=== PATIENT | female | born 1985 | race Caucasian/White ===

== ENCOUNTER 2017-04-02 15:43 | Emergency (ER) | payer BC, MEDICAID ==
[~2017-04-02] VITALS: Ht 162.6 cm; Wt 67.6 kg
[~2017-04-02 15:43] MED LIST: CEPH500C3 PO; KETO10 PO; LEVA500T33 PO; Z.0.NO CURRENT MEDS
[2017-04-02] MEDS ORDERED: PRENTAB7 (16:02)
--- NOTE | 2017-04-02 16:43 | PD ---
HPI Chief Complaint Lower abdominal pain Melo Cohen contractions Date Seen: Apr 02, 2017 Time Seen: 16:35 Travel History International Travel<30 Days: No Contact w/Intl Traveler<30Days: No Known Affected Area: No History of Present Illness HPI This patient is a 31-year-old white female now at 31-32 weeks presents complaining of lower abdominal pains and the contractions, no bleeding or leakage of fluid. heart rate tracing is reactive, she has no contractions seen on the monitor Weeks Gestation: 31 Para: 2 : 3 History Obstetric History Obstetric History 2 vaginal deliveries Social History Alcohol Use: No Tobacco Use: No Substance Abuse: No Allergies-Medications (Allergen,Severity, Reaction): Coded Allergies: No Known Allergies (Unverified Allergy, Unknown, 04/02/17) pineapple (Verified Adverse Reaction, Unknown, Anaphylaxis, 04/02/17) Home Meds Reported Medications Pnv No.95/Ferrous Fum/Folic AC ( Vitamins Tablet) 28 Mg Iron-800 Mcg Tablet 04/02/17 Discontinued Reported Medications Miscellaneous (No Current Meds) Misc 11/28/11 Discontinued Scripts Cephalexin (Keflex) 500 Mg Cap, 500 MG PO Q8, #30 CAP Prov:Choco Weiss MD 02/18/15 Ketorolac Tromethamine (Toradol) 10 Mg Tab, 10 MG PO Q8, #15 Prov:Scarlet WEBB M.D. 11/28/11 Levofloxacin (Levaquin) 500 Mg Tab, 500 MG PO DAILY, #10 Prov:Scarlet WEBB M.D. 11/28/11 Review of Systems General / Constitutional: No: Fever, Weight Gain, Chills, Other Eyes: No: Diploplia, Blurred Vision, Visual changes, Pain, Photophobia HENT: No: Headaches, Vertigo, Lightheadedness Cardiovascular: No: Irregular Rhythm, Chest Pain or Discomfort, Palpitations, Tachycardia, Syncope, Varicosities, Edema, Cyanosis Respiratory: No: Cough, Short of Breath, Other Gastrointestinal: Abdominal Pain, No: Nausea, Vomiting, Diarrhea Genitourinary: No: Decreased Urinary Output, Oliguria Musculoskeletal: No: Limited ROM, Weakness, Cramping, Edema, Pain Skin: No Rash, No Itching, No Dryness, No Lumps, No Change in Pigmentation, No Change in Nails, No Alopecia, No Lesions Neurologic: No: Weakness, Dizziness, Syncope, Focal Abnormalities, Coordination Problem, Headache, Slurred Speech, Seizures Psychiatric: No: Depression, Suicidal Ideations, Homicidal Ideation Endocrine: No: Heat Intolerance, Cold Intolerance, Polydipsia, Polyuria, Other Physical Exam Narrative GENERAL: Well-nourished, well-developed patient. SKIN: Warm and dry. HEAD: Normocephalic and atraumatic. EYES: No scleral icterus. No injection or drainage. ENT: No nasal drainage noted. Mucous membranes pink. Airway patent. NECK: Supple, trachea midline. No JVD. CARDIOVASCULAR: Regular rate and rhythm without murmurs, gallops, or rubs. RESPIRATORY: Breath sounds equal bilaterally. No accessory muscle use. BREASTS: Bilateral exam showed no masses , no retractions, no nipple discharge. ABDOMEN/GI: Abdomen soft, non-tender, bowel sounds present, no rebound, no guarding Gravid to [31-] weeks size Fundal Height: [31-] GENITOURINARY: External Genitalia: intact and normal in appearance BUS glands: [-] Cervix: [Posterior-] Dilatation: [Closed-] Effacement: [thick-] Station: [-3] Membranes: [intact ] Uterine Contractions: [none-] FHT's: Category: [1-] Baseline: [-133] Reactive: [yes-] Variability: [mod-] Decels: [0-] EXTREMITIES: No cyanosis or edema. BACK: Nontender without obvious deformity. No CVA tenderness. NEUROLOGICAL: Awake and alert. Motor and sensory grossly within normal limits. Five out of 5 muscle strength in all muscle groups. Normal speech. Data Data Labs Urine dip on OB ED negative MDM Interpretation(s) 31-year-old white female 31-32 weeks sees Irish Richardson for care. She complains of lower abdominal pain sharp at times right lower quadrant pain that worsens with walking and activity is better when she lies down. Also Searcy Cohen contractions that she describes is at times regular, however here on OB ED we do not see any contractions on the monitor heart rate tracing is reactive. Her cervix is closed and high. Urinalysis on dipstick is negative. So this is very likely muscular skeletal strain and pain issue, patient has 2 toddler's that she is constantly carrying around of and getting up and down for as well as she works regular basis and I think she is just over done it recently Plan Plan for patient to be at increased bedrest over the next 1-2 days, family help with the other babies get some rest. Drink plenty fluid hydrate, Tylenol 1-2 every 4 when necessary pain, and a heating pad on lower abdomen and low back as needed or soak a hot bath for symptom relief. Diagnosis Diagnosis: Primary Impression: Abdominal pain during in third trimester Additional Impression: 31 weeks gestation of Disposition: 01 DISCHARGE HOME Condition: Stable Jp Carpenter II, MD Apr 02, 2017 16:43
== END 2017-04-02 16:58 | disposition home or self-care (01) ==
LOC: HOBED 15:43
DX: O26.893 Other specified pregnancy related conditions, third trimester (principal); R10.30 Lower abdominal pain, unspecified; Z3A.31 31 weeks gestation of pregnancy
CPT/HCPCS: 99282

== ENCOUNTER 2017-04-08 10:46 | Emergency (ER) | payer BC, MEDICAID ==
[~2017-04-08] VITALS: Ht 162.6 cm; Wt 67.6 kg
[~2017-04-08 10:46] MED LIST changes: -CEPH500C3 PO; -KETO10 PO; -LEVA500T33 PO; +PRENTAB7; -Z.0.NO CURRENT MEDS
--- NOTE | 2017-04-08 12:05 | PD ---
HPI Chief Complaint Decreased movement, contractions Date Seen: Apr 08, 2017 Time Seen: 11:45 Travel History International Travel<30 Days: No Contact w/Intl Traveler<30Days: No Known Affected Area: No History of Present Illness HPI Patient is a 31 year old at 32/5 weeks gestation that presents to the [facility] ED with a chief complaints of decreased movement and contractions. Patient was last radha in the ED on April [address] Carpenter where her cervix was found to be high, thick, and close with no contractions seen on the monitor. Patient states that since she left the OB ED, on Tuesday she noticed three quarter-sized blood when she wiped after using the bathroom. She went to see her OB transformer molder Irish Richardson and her cervix was found to be low, soft, 1 cm dilated, and 0 station. She was put on bedrest until 36 weeks. Since then, she has been having bouts of sharp contractions that seemed to occur every 10-12 minutes and dissipate after 45 minutes. Last night, she woke up with contractions but was able to go back to sleep, and then woke up later with crampy labor-like pain similar to when she had her 2 other children. This morning, she got up to help her kids get to school and realized that she did not feel her baby move for more than an hour. She denies loss of fluid, fever, chills, chest pain, shortness of breath, and dysuria. She has been having nausea and noticed brownish discharge the last few days but did not see any today. History Past Medical History Medical History: Denies Significant Hx Obstetric History Obstetric History , last 2 deliveries were vaginal Past Surgical History Narrative Surgical 2 laparoscopic surgeries for endometriosis and ovarian cyst Tonsillectomy and adenoidectomy at 1 years old Nerve reattachment on her left hand Family History Narrative Family History Patient's dad has heart disease and hypertension Social History Alcohol Use: No Tobacco Use: No Substance Abuse: No Allergies-Medications (Allergen,Severity, Reaction): Coded Allergies: No Known Allergies (Unverified Allergy, Unknown, 04/08/17) pineapple (Verified Adverse Reaction, Unknown, Anaphylaxis, 04/08/17) Home Meds Reported Medications Pnv No.95/Ferrous Fum/Folic AC ( Vitamins Tablet) 28 Mg Iron-800 Mcg Tablet 04/02/17 Discontinued Reported Medications Miscellaneous (No Current Meds) Misc 11/28/11 Discontinued Scripts Cephalexin (Keflex) 500 Mg Cap, 500 MG PO Q8, #30 CAP Prov:Choco Weiss MD 02/18/15 Ketorolac Tromethamine (Toradol) 10 Mg Tab, 10 MG PO Q8, #15 Prov:Scarlet WEBB M.D. 11/28/11 Levofloxacin (Levaquin) 500 Mg Tab, 500 MG PO DAILY, #10 Prov:Scarlet WEBB M.D. 11/28/11 Review of Systems General / Constitutional: No: Fever, Chills Cardiovascular: No: Chest Pain or Discomfort Respiratory: No: Short of Breath Gastrointestinal: Nausea, No: Vomiting Genitourinary: No: Dysuria Physical Exam Narrative GENERAL: Well-nourished, well-developed patient. SKIN: Warm and dry. HEAD: Normocephalic and atraumatic. EYES: No scleral icterus. No injection or drainage. ENT: No nasal drainage noted. Mucous membranes pink. Airway patent. NECK: Supple, trachea midline. No JVD. CARDIOVASCULAR: Regular rate and rhythm without murmurs, gallops, or rubs. RESPIRATORY: Breath sounds equal bilaterally. No accessory muscle use. BREASTS: Bilateral exam showed no masses , no retractions, no nipple discharge. ABDOMEN/GI: Abdomen soft, non-tender, bowel sounds present, no rebound, no guarding Gravid to 32 weeks size GENITOURINARY: External Genitalia: intact and normal in appearance PELVIC EXAM: Normally developed genitalia with no external lesions or eruptions. Vagina and cervix show no lesions, inflammation, blood, or abnormal- appearing discharge. OS patent. No cervical motion tenderness. No cervical friability. No cystocele. No foul smell. Cervix: 1cm/40%/-2 Membranes: Intact Uterine Contractions: Present but irregular FHT's: Category: II, baseline 135, many accels, 1-2 isolated variable decels EXTREMITIES: No cyanosis or edema. BACK: Nontender without obvious deformity. No CVA tenderness. NEUROLOGICAL: Awake and alert. Motor and sensory grossly within normal limits. Five out of 5 muscle strength in all muscle groups. Normal speech. Data Data Vital Signs Reviewed: Yes Orders Orders Vital Signs (Adult) .ON ADMISSION (04/08/17 11:57) ^ Labor Status (04/08/17 11:57) Urinalysis - C+S If Indicated (04/08/17 11:57) ^ Non Stress Test (04/08/17 11:57) ^ Hydration (04/08/17 11:57) Lactated Ringer's 1000 Ml Inj (Lr 1000 M (04/08/17 11:57) Drug Screen, Random Urine (04/08/17 11:57) MDM Medical Record Reviewed: Yes Interpretation(s) 31-year-old female presents with premature contractions Plan -Reassuring strip -LR boluses and oral hydration -Tocolysis with terbutaline 0.2 g subcutaneous -Will check UA, UDS, and fibronectin Procedure Narrative UA, UDS, and fibronectin were negative Patient received one LR bolus, oral hydration, and subcutaneous terbutaline that resulted in diminished contractions She was deemed stable for discharge home with clear instructions to watch for early signs of labor Diagnosis Diagnosis: Primary Impression: Premature uterine contractions causing threatened premature labor in third trimester Disposition: 01 DISCHARGE HOME Condition: Stable Patient Instructions: Movement (ED), Labor (ED), Premature Rupture of Membranes (ED) Additional Instructions: -Please follow up with your OB provider within one week -Daily kick counts -Return to the OB ED if you experience copious vaginal bleeding or gush/leakage of fluid Alanis Wilson MD R2 Apr 08, 2017 12:05
[2017-04-08] MEDS: LACTATED RINGER'S 1000 ML INJ 1,000 ML IV SCH ×2 (12:14→13:17)
[2017-04-08] MEDS ORDERED: TERBUTALINE INJ 1 MG/ML AMP SQ PRN (13:00)
[2017-04-08 13:16] LABS: BACTERIA, URINE RARE /hpf; BLOOD, URINE NEG (NEG); COMMENT (UR) CULT NOT INDICATED; CULTURE IF INDICATED CULT NOT INDICATED; GLUCOSE,URINE NEG (NEG); KETONE, URINE NEG (NEG); NITRITE,URINE NEG (NEG); SQUAMOUS EPITHELIAL CELL URINE <1 /hpf (0-5); URINE COLOR LIGHT-YELLOW (YELLW/STRAW)
== END 2017-04-08 14:48 | disposition home or self-care (01) ==
LOC: HOBED 10:46
DX: O36.8130 Decreased fetal movements, third trimester, not applicable or unspecified (principal); Z3A.32 32 weeks gestation of pregnancy
CPT/HCPCS: 59025; 80307; 81001; 82731; 96360; 96372; 99284; J3105; J7120